=== PATIENT | male | born 1975 | race Caucasian/White ===

== ENCOUNTER 2023-04-27 22:16 | Emergency (ER) | payer OTHER ==
[~2023-04-27] VITALS: Ht 177.8 cm; Wt 124.7 kg
[2023-04-27 22:26] VITALS: BP_SYST 165; PULSE 88; RESP 16; TEMP 97.9; O2SAT 98
[2023-04-27] MEDS ORDERED: KETOROLAC TROMETHAMINE 60 MG/2 ML VIAL IM ONE (22:30)
[2023-04-27] MEDS ORDERED: HYDR-3927 PO (22:40)
[2023-04-27] MEDS ORDERED: IBUP-1971 PO (22:40)
[2023-04-27 22:47] VITALS: BP_SYST 160; PULSE 88; RESP 16; TEMP 97.9; O2SAT 98
== END 2023-04-27 22:47 | disposition home or self-care (01) ==
LOC: SED 22:16
DX: M79.18 Myalgia, other site (principal); R51.9 Headache, unspecified; M54.2 Cervicalgia; Z79.899 Other long term (current) drug therapy
CPT/HCPCS: 99283; 96372; J1885